=== PATIENT | female | born 2000 | race Caucasian/White ===

== ENCOUNTER 2022-11-06 19:13 | Emergency (ER) | payer OTHER ==
[~2022-11-06] VITALS: Ht 170.2 cm; Wt 63.1 kg
[2022-11-07] MEDS ORDERED: VENTAER INH (01:10)
[2022-11-07] MEDS ORDERED: BENZ200C70 PO (01:10)
[2022-11-07 01:18] VITALS: BP 114/63; TEMP 97.1; O2SAT 98
== END 2022-11-07 01:15 | disposition home or self-care (01) ==
LOC: M ED 19:13
DX: U07.1 COVID-19 (principal); Z79.52 Long term (current) use of systemic steroids; Z79.899 Other long term (current) drug therapy

== ENCOUNTER 2023-12-27 22:07 | Inpatient (IN) | payer OTHER ==
[~2023-12-27] VITALS: Ht 170.2 cm; Wt 61.4 kg
[~2023-12-27 22:07] MED LIST: BENZ200C70 PO; VENTAER INH
[2023-12-27 22:43] LABS: HEMATOCRIT 37.7 % (36.0-47.0); HEMOGLOBIN 12.7 g/dl (12.0-15.5); MEAN CORPUSCULAR HGB CONC 33.7 g/dl (32.0-36.5); MEAN CORPUSCULAR VOLUME 88.9 fl (80.0-96.0); PLATELET COUNT, AUTOMATED 270 10^3/uL (150-450); RED BLOOD COUNT 4.24 10^6/uL (4.00-5.40); WHITE BLOOD COUNT 10.7 10^3/uL (4.0-10.0)
[2023-12-27 23:03] LABS: AMPHETAMINES LEVEL URINE NEGATIVE (NEGATIVE); BARBITURATES URINE NEGATIVE (NEGATIVE); BENZODIAZEPINES URINE NEGATIVE (NEGATIVE); CANNABINOIDS URINE NEGATIVE (NEGATIVE); METHADONE URINE NEGATIVE (NEGATIVE); OPIATES URINE NEGATIVE (NEGATIVE); PHENCYCLIDINE URINE NEGATIVE (NEGATIVE)
[2023-12-27 23:05] LABS: ETHYL ALCOHOL (ETHANOL) < 0.003 % (0.000-0.010)
[2023-12-27 23:07] LABS: ALBUMIN 3.7 G/DL (3.2-5.2); ALKALINE PHOSPHATASE 90 U/L (35-104); ALT/SGPT 10 U/L (7.0-40); AST/SGOT 9 U/L (<34); BILIRUBIN,DIRECT 0.1 MG/DL (<0.4); BILIRUBIN,TOTAL 0.3 MG/DL (0.3-1.2); BLOOD UREA NITROGEN 9 MG/DL (9-23); CALCIUM LEVEL 9.3 MG/DL (8.5-10.1); CARBON DIOXIDE LEVEL 30 MMOL/L (20-31); CHLORIDE LEVEL 108 MMOL/L (98-107); CREATININE FOR GFR 0.76 MG/DL (0.55-1.30); GLOMERULAR FILTRATION RATE > 60.0 (>60); GLUCOSE, FASTING 89 MG/DL (60-100); POTASSIUM SERUM 3.6 MMOL/L (3.5-5.1); SALICYLATE LEVEL < 3.0 MG/DL (<30); SODIUM LEVEL 142 MMOL/L (136-145); TOTAL PROTEIN 6.7 G/DL (5.7-8.2)
[2023-12-27 23:10] LABS: COCAINE METABOLITE URINE POSITIVE (NEGATIVE)
[2023-12-27 23:11] LABS: THYROID STIMULATING HORMONE 2.356 uIU/ML (0.55-4.78)
[2023-12-28 00:04] LABS: HCG, SERUM QUALITATIVE NEGATIVE (NEGATIVE)
[2023-12-28] MEDS: NICOTINE 21MG/24HR 1 EA TRANSDERMAL TD ONE (00:58)
[2023-12-28] MEDS ORDERED: HOME MED LIST COMPLETE! XX SCH (01:10)
[2023-12-28] MEDS ORDERED: ACETAMINOPHEN 325 MG TAB PO PRN (01:15)
[2023-12-28] MEDS ORDERED: IBUPROFEN 400MG TAB PO PRN (01:15)
[2023-12-28] MEDS ORDERED: MOM 30ML SUSPENSION UDC PO PRN (01:15)
[2023-12-28] MEDS ORDERED: MAALOX 30 ML SUSP *UDC PO PRN (01:15)
[2023-12-28 06:48] VITALS: BP 141/60; TEMP 97.9; O2SAT 98
[2023-12-28] MEDS ORDERED: LORazepam 2 MG TAB PO PRN (07:55)
[2023-12-28] MEDS: FOLIC ACID 1MG TAB PO SCH (09:14)
[2023-12-28] MEDS: THIAMINE 100 MG TAB PO SCH (09:14)
[2023-12-28] MEDS: MULTIVITAMINS/MINERALS THERAP 1 TAB PO SCH (09:14)
[2023-12-28] MEDS: SERTRALINE HCL 50 MG TAB PO SCH (10:15)
[2023-12-28] MEDS: NICOTINE 21MG/24HR 1 EA TRANSDERMAL TD SCH (13:37)
[2023-12-28 16:40] VITALS: BP 118/64; TEMP 99.2
[2023-12-28] MEDS: diphenhydrAMINE 25MG CAP PO PRN (20:17)
[2023-12-28] MEDS: traZODone 50 MG TAB PO PRN (20:17)
[2023-12-28 20:47] VITALS: BP 116/76
[2023-12-29 04:45] VITALS: BP 109/59
[2023-12-29 06:35] VITALS: BP 109/59; TEMP 97.6
[2023-12-29 10:34] VITALS: BP 118/62
[2023-12-29 14:34] VITALS: BP 121/57; TEMP 98.7; O2SAT 100
[2023-12-29 17:22] VITALS: BP 121/64
[2023-12-30 06:13] VITALS: BP 131/69; TEMP 98; O2SAT 99
[2023-12-30] MEDS ORDERED: SERT50TA29 PO (07:57)
[2023-12-30 09:30] VITALS: BP 131/69
[2023-12-30] MEDS ORDERED: SERT-141 PO (13:22)
[2023-12-31] MEDS ORDERED: SERT50TA29 PO (23:25)
[2023-12-31] MEDS ORDERED: HYDR50TA70 PO (23:25)
[2023-12-31] MEDS ORDERED: TRAZ-252 PO (23:25)
[2023-12-31] MEDS ORDERED: VITAMIN K PO (23:27)
[2023-12-31] MEDS ORDERED: VITAMIN B12 PO (23:35)
[2023-12-31] MEDS ORDERED: VITACAP31 PO (23:35)
[2023-12-31] MEDS ORDERED: PROBIOTIC PO (23:35)
[2023-12-31] MEDS ORDERED: ACTIVATED CHARCOAL PO (23:35)
[2023-12-31] MEDS ORDERED: ENZYMES PO (23:35)
[2023-12-31] MEDS ORDERED: [UNRECOGNIZED DRUG - CODE] PO (23:35)
[2023-12-31] MEDS ORDERED: [UNRECOGNIZED DRUG - OTHER] PO (23:37)
== END 2023-12-30 11:06 | disposition home or self-care (01) | DRG 881 ==
LOC: M ED 22:07 → M ED INP 12-28 01:13 → M PSY 12-28 03:12
PROVIDERS: ADMIT Psychiatry & Neurology Psychiatry; ATTEND Psychiatry & Neurology Psychiatry
DX: F32.A Depression, unspecified (principal); R45.851 Suicidal ideations; Z62.810 Personal history of physical and sexual abuse in childhood; Z91.51 Personal history of suicidal behavior; Z81.8 Family history of other mental and behavioral disorders; F17.200 Nicotine dependence, unspecified, uncomplicated; Z65.3 Problems related to other legal circumstances

== ENCOUNTER 2023-12-31 20:45 | Inpatient (IN) | payer OTHER ==
[~2023-12-31] VITALS: Ht 170.2 cm; Wt 60.8 kg
[~2023-12-31 20:45] MED LIST changes: +SERT-141 PO; +SERT50TA29 PO
[2023-12-31 21:25] LABS: HEMATOCRIT 37.4 % (36.0-47.0); HEMOGLOBIN 12.7 g/dl (12.0-15.5); MEAN CORPUSCULAR HEMOGLOBIN 30.2 pg (27.0-33.0); PLATELET COUNT, AUTOMATED 290 10^3/uL (150-450); WHITE BLOOD COUNT 12.1 10^3/uL (4.0-10.0)
[2023-12-31 21:50] LABS: ETHYL ALCOHOL (ETHANOL) 0.007 % (0.000-0.010)
[2023-12-31] MEDS ORDERED: MED REC IN PROGRESS XX SCH (21:50)
[2023-12-31 21:51] LABS: SALICYLATE LEVEL < 3.0 MG/DL (<30)
[2023-12-31 21:52] LABS: ALBUMIN 3.8 G/DL (3.2-5.2); ALKALINE PHOSPHATASE 84 U/L (35-104); ALT/SGPT 12 U/L (7.0-40); AST/SGOT < 8 U/L (<34); BILIRUBIN,DIRECT < 0.1 MG/DL (<0.4); BILIRUBIN,TOTAL 0.2 MG/DL (0.3-1.2); BLOOD UREA NITROGEN 10 MG/DL (9-23); CALCIUM LEVEL 9.2 MG/DL (8.5-10.1); CARBON DIOXIDE LEVEL 26 MMOL/L (20-31); CHLORIDE LEVEL 107 MMOL/L (98-107); CREATININE FOR GFR 0.71 MG/DL (0.55-1.30); GLOMERULAR FILTRATION RATE > 60.0 (>60); GLUCOSE, FASTING 86 MG/DL (60-100); POTASSIUM SERUM 3.6 MMOL/L (3.5-5.1); SODIUM LEVEL 139 MMOL/L (136-145); TOTAL PROTEIN 6.9 G/DL (5.7-8.2)
[2023-12-31 21:54] LABS: THYROID STIMULATING HORMONE 3.261 uIU/ML (0.55-4.78)
[2023-12-31 22:00] LABS: AMPHETAMINES LEVEL URINE NEGATIVE (NEGATIVE); BARBITURATES URINE NEGATIVE (NEGATIVE); BENZODIAZEPINES URINE NEGATIVE (NEGATIVE); COCAINE METABOLITE URINE NEGATIVE (NEGATIVE); METHADONE URINE NEGATIVE (NEGATIVE)
[2023-12-31 22:01] LABS: CANNABINOIDS URINE NEGATIVE (NEGATIVE); OPIATES URINE NEGATIVE (NEGATIVE); PHENCYCLIDINE URINE NEGATIVE (NEGATIVE)
[2023-12-31 22:16] LABS: HCG, SERUM QUALITATIVE NEGATIVE (NEGATIVE)
[2023-12-31] MEDS ORDERED: SERT50TA29 PO (23:25)
[2023-12-31] MEDS ORDERED: HYDR50TA70 PO (23:25)
[2023-12-31] MEDS ORDERED: TRAZ-252 PO (23:25)
[2023-12-31] MEDS ORDERED: VITAMIN K PO (23:27)
[2023-12-31] MEDS ORDERED: MOM 30ML SUSPENSION UDC PO PRN (23:30)
[2023-12-31] MEDS ORDERED: ACETAMINOPHEN 325 MG TAB PO PRN (23:30)
[2023-12-31] MEDS ORDERED: MAALOX 30 ML SUSP *UDC PO PRN (23:30)
[2023-12-31] MEDS ORDERED: [UNRECOGNIZED DRUG - CODE] PO (23:35)
[2023-12-31] MEDS ORDERED: ENZYMES PO (23:35)
[2023-12-31] MEDS ORDERED: ACTIVATED CHARCOAL PO (23:35)
[2023-12-31] MEDS ORDERED: VITACAP31 PO (23:35)
[2023-12-31] MEDS ORDERED: VITAMIN B12 PO (23:35)
[2023-12-31] MEDS ORDERED: PROBIOTIC PO (23:35)
[2023-12-31] MEDS ORDERED: [UNRECOGNIZED DRUG - OTHER] PO (23:37)
[2023-12-31] MEDS ORDERED: HOME MED LIST COMPLETE! XX SCH (23:40)
[2024-01-01 01:22] VITALS: BP 123/57; TEMP 97.7; O2SAT 97
[2024-01-01] MEDS: diphenhydrAMINE 25MG CAP PO PRN (08:56)
[2024-01-01] MEDS: SERTRALINE HCL 50 MG TAB PO SCH (13:46)
[2024-01-01] MEDS: hydrOXYzine 50 MG TAB PO PRN (13:47)
[2024-01-01 14:46] VITALS: BP 127/58; TEMP 97.9; O2SAT 100
[2024-01-01] MEDS: NICOTINE 21MG/24HR 1 EA TRANSDERMAL TD SCH (14:55)
[2024-01-01] MEDS: traZODone 50 MG TAB PO PRN (21:05)
[2024-01-02 06:16] VITALS: BP 128/72; TEMP 97.3; O2SAT 96
[2024-01-02 15:30] VITALS: BP 116/60; TEMP 98.9; O2SAT 99
[2024-01-03 06:22] VITALS: BP 106/55; TEMP 97.3; O2SAT 98
[2024-01-03 16:46] VITALS: BP 149/80; TEMP 98.3; O2SAT 100
[2024-01-03] MEDS: IBUPROFEN 400MG TAB PO PRN (17:06)
[2024-01-04 06:09] VITALS: BP 115/57; TEMP 97.9; O2SAT 100
[2024-01-04 15:52] VITALS: BP 122/64; TEMP 99; O2SAT 94
[2024-01-05 06:15] VITALS: BP 119/58; TEMP 97.6; O2SAT 98
[2024-01-05 15:08] VITALS: BP 110/79; TEMP 97.5; O2SAT 98
[2024-01-06 06:23] VITALS: BP 110/73; TEMP 97.9; O2SAT 97
[2024-01-06 15:32] VITALS: BP 124/64; TEMP 98.4; O2SAT 100
[2024-01-09 15:37] VITALS: BP 124/72; TEMP 98.7; O2SAT 98
[2024-01-10 15:24] VITALS: BP 113/66; TEMP 98.5; O2SAT 98
[2024-01-12] MEDS ORDERED: DIPH-429 PO (18:31)
== END 2024-01-11 12:08 | disposition home or self-care (01) | DRG 881 ==
LOC: M ED 20:45 → M ED INP 23:30 → M PSY 01-01 00:28
PROVIDERS: ADMIT Psychiatry & Neurology Psychiatry; ATTEND Psychiatry & Neurology Psychiatry
DX: F32.A Depression, unspecified (principal); R45.851 Suicidal ideations; F43.20 Adjustment disorder, unspecified; F60.89 Other specific personality disorders; Z81.8 Family history of other mental and behavioral disorders; F19.90 Other psychoactive substance use, unspecified, uncomplicated

== ENCOUNTER 2024-01-12 17:31 | Emergency (ER) | payer OTHER ==
[~2024-01-12] VITALS: Ht 170.2 cm; Wt 61.4 kg
[~2024-01-12 17:31] MED LIST changes: +ACTIVATED CHARCOAL PO; +ENZYMES PO; +HYDR50TA70 PO; +PROBIOTIC PO; +TRAZ-252 PO; +VITACAP31 PO; +VITAMIN B12 PO; +VITAMIN K PO; +[UNRECOGNIZED DRUG - CODE] PO; +[UNRECOGNIZED DRUG - OTHER] PO
[2024-01-12 18:30] LABS: HEMATOCRIT 41.2 % (36.0-47.0); HEMOGLOBIN 13.9 g/dl (12.0-15.5); MEAN CORPUSCULAR HEMOGLOBIN 29.4 pg (27.0-33.0); MEAN CORPUSCULAR HGB CONC 33.7 g/dl (32.0-36.5); MEAN CORPUSCULAR VOLUME 87.3 fl (80.0-96.0); PLATELET COUNT, AUTOMATED 281 10^3/uL (150-450); RED BLOOD COUNT 4.72 10^6/uL (4.00-5.40); WHITE BLOOD COUNT 11.4 10^3/uL (4.0-10.0)
[2024-01-12] MEDS ORDERED: DIPH-429 PO (18:31)
[2024-01-12] MEDS ORDERED: HOME MED LIST COMPLETE! XX SCH (18:40)
[2024-01-12 18:52] LABS: AMPHETAMINES LEVEL URINE NEGATIVE (NEGATIVE); BARBITURATES URINE NEGATIVE (NEGATIVE); BENZODIAZEPINES URINE NEGATIVE (NEGATIVE); CANNABINOIDS URINE NEGATIVE (NEGATIVE); COCAINE METABOLITE URINE NEGATIVE (NEGATIVE); ETHYL ALCOHOL (ETHANOL) 0.005 % (0.000-0.010); METHADONE URINE NEGATIVE (NEGATIVE); OPIATES URINE NEGATIVE (NEGATIVE); PHENCYCLIDINE URINE NEGATIVE (NEGATIVE)
[2024-01-12 18:53] LABS: SALICYLATE LEVEL < 3.0 MG/DL (<30)
[2024-01-12 18:54] LABS: ALBUMIN 4.4 G/DL (3.2-5.2); ALKALINE PHOSPHATASE 80 U/L (35-104); ALT/SGPT 20 U/L (7.0-40); AST/SGOT 16 U/L (<34); BILIRUBIN,DIRECT 0.2 MG/DL (<0.4); BILIRUBIN,TOTAL 0.5 MG/DL (0.3-1.2); BLOOD UREA NITROGEN 12 MG/DL (9-23); CALCIUM LEVEL 9.8 MG/DL (8.5-10.1); CARBON DIOXIDE LEVEL 26 MMOL/L (20-31); CHLORIDE LEVEL 107 MMOL/L (98-107); CREATININE FOR GFR 0.65 MG/DL (0.55-1.30); GLOMERULAR FILTRATION RATE > 60.0 (>60); GLUCOSE, FASTING 93 MG/DL (60-100); POTASSIUM SERUM 3.6 MMOL/L (3.5-5.1); SODIUM LEVEL 142 MMOL/L (136-145); TOTAL PROTEIN 7.8 G/DL (5.7-8.2)
[2024-01-12 18:56] LABS: THYROID STIMULATING HORMONE 2.722 uIU/ML (0.55-4.78)
[2024-01-12 19:00] LABS: HCG, SERUM QUALITATIVE NEGATIVE (NEGATIVE)
[2024-01-12 20:22] VITALS: BP 117/68; TEMP 98; O2SAT 99
== END 2024-01-12 22:45 | disposition home or self-care (01) ==
LOC: M ED 17:31
DX: Z04.6 Encounter for general psychiatric examination, requested by authority (principal); F32.A Depression, unspecified; F19.10 Other psychoactive substance abuse, uncomplicated; Z79.899 Other long term (current) drug therapy

== ENCOUNTER 2024-01-19 04:18 | Inpatient (IN) | payer OTHER ==
[~2024-01-19] VITALS: Ht 165.1 cm; Wt 63.2 kg
[~2024-01-19 04:18] MED LIST changes: +DIPH-429 PO
[2024-01-19 04:56] LABS: HEMATOCRIT 37.8 % (36.0-47.0); HEMOGLOBIN 12.8 g/dl (12.0-15.5); MEAN CORPUSCULAR HEMOGLOBIN 29.6 pg (27.0-33.0); MEAN CORPUSCULAR HGB CONC 33.9 g/dl (32.0-36.5); MEAN CORPUSCULAR VOLUME 87.5 fl (80.0-96.0); PLATELET COUNT, AUTOMATED 266 10^3/uL (150-450); RED BLOOD COUNT 4.32 10^6/uL (4.00-5.40); WHITE BLOOD COUNT 7.8 10^3/uL (4.0-10.0)
[2024-01-19 05:26] LABS: AMPHETAMINES LEVEL URINE NEGATIVE (NEGATIVE); BARBITURATES URINE NEGATIVE (NEGATIVE); BENZODIAZEPINES URINE NEGATIVE (NEGATIVE); CANNABINOIDS URINE NEGATIVE (NEGATIVE); COCAINE METABOLITE URINE NEGATIVE (NEGATIVE); METHADONE URINE NEGATIVE (NEGATIVE); OPIATES URINE NEGATIVE (NEGATIVE); PHENCYCLIDINE URINE NEGATIVE (NEGATIVE)
[2024-01-19 05:29] LABS: ALBUMIN 3.9 G/DL (3.2-5.2); ALKALINE PHOSPHATASE 80 U/L (35-104); ALT/SGPT 26 U/L (7.0-40); AST/SGOT 20 U/L (<34); BILIRUBIN,DIRECT < 0.1 MG/DL (<0.4); BILIRUBIN,TOTAL 0.2 MG/DL (0.3-1.2); BLOOD UREA NITROGEN 15 MG/DL (9-23); CALCIUM LEVEL 9.2 MG/DL (8.5-10.1); CARBON DIOXIDE LEVEL 24 MMOL/L (20-31); CHLORIDE LEVEL 110 MMOL/L (98-107); CREATININE FOR GFR 0.77 MG/DL (0.55-1.30); GLOMERULAR FILTRATION RATE > 60.0 (>60); GLUCOSE, FASTING 81 MG/DL (60-100); POTASSIUM SERUM 3.8 MMOL/L (3.5-5.1); SALICYLATE LEVEL < 3.0 MG/DL (<30); SODIUM LEVEL 143 MMOL/L (136-145); TOTAL PROTEIN 6.8 G/DL (5.7-8.2)
[2024-01-19 05:33] LABS: THYROID STIMULATING HORMONE 4.466 uIU/ML (0.55-4.78)
[2024-01-19 05:38] LABS: HCG, SERUM QUALITATIVE NEGATIVE (NEGATIVE)
[2024-01-19] MEDS ORDERED: ISOVUE-370 76% 100ML VIAL As Ordered ONE (05:48)
[2024-01-19] MEDS: NS 1,000 ML IV ONE (05:55)
[2024-01-19] MEDS ORDERED: HYDR50TAB PO (07:15)
[2024-01-19] MEDS ORDERED: LOSA100T46 PO (07:16)
[2024-01-19] MEDS ORDERED: SIMV40TA20 PO (07:17)
[2024-01-19] MEDS ORDERED: METF-839 PO (07:18)
[2024-01-19] MEDS ORDERED: ROPI2TAB24 PO (07:19)
[2024-01-19] MEDS ORDERED: ROPI0.5T33 PO (07:19)
[2024-01-19] MEDS ORDERED: METO1TAB7 PO (07:20)
[2024-01-19] MEDS ORDERED: IRON65TA2 PO (07:21)
[2024-01-19] MEDS ORDERED: MAGN400C PO (07:22)
[2024-01-19] MEDS ORDERED: VITA200012 PO (07:23)
[2024-01-19] MEDS ORDERED: HOME MED LIST COMPLETE! XX SCH (10:30)
[2024-01-19] MEDS ORDERED: MAALOX 30 ML SUSP *UDC PO PRN (13:45)
[2024-01-19] MEDS ORDERED: MOM 30ML SUSPENSION UDC PO PRN (13:45)
[2024-01-19] MEDS ORDERED: ACETAMINOPHEN 325 MG TAB PO PRN (13:45)
[2024-01-19 15:01] VITALS: BP 122/58; TEMP 98.1
[2024-01-19] MEDS: SERTRALINE HCL 50 MG TAB PO SCH (18:06)
[2024-01-19] MEDS: NICOTINE 14 MG/24 HR TRANSDERMAL TD SCH (18:11)
[2024-01-19] MEDS: diphenhydrAMINE 25MG CAP PO PRN (18:42)
[2024-01-20] MEDS: traZODone 50 MG TAB PO PRN (00:48)
[2024-01-20 06:33] VITALS: BP 120/58; O2SAT 100
[2024-01-20] MEDS: IBUPROFEN 400MG TAB PO PRN (11:53)
[2024-01-20] MEDS: OLANZapine ORAL DISINTEGRATING TAB 5MG PO PRN (12:27)
[2024-01-20 14:56] VITALS: BP 119/56; TEMP 97.7; O2SAT 98
[2024-01-20 22:08] VITALS: BP 119/56; TEMP 97.7; O2SAT 98
[2024-01-21] MEDS: SERTRALINE HCL 25 MG TABLET PO SCH (08:44)
[2024-01-21 16:31] VITALS: BP 118/66; TEMP 98.7; O2SAT 100
[2024-01-22 15:16] VITALS: BP 117/63; TEMP 98.6; O2SAT 100
[2024-01-23 16:07] VITALS: BP 116/56; TEMP 98.7; O2SAT 100
[2024-01-24] MEDS ORDERED: SERT25TA21 PO (09:26)
[2024-01-24] MEDS ORDERED: OLAN5ZYD PO (09:26)
== END 2024-01-24 10:48 | disposition home or self-care (01) | DRG 881 ==
LOC: EDBD 04:18 → M ED 04:18 → M ED INP 13:44 → M PSY 14:41
PROVIDERS: ADMIT Psychiatry & Neurology Psychiatry; ATTEND Psychiatry & Neurology Psychiatry
DX: F32.A Depression, unspecified (principal); R45.851 Suicidal ideations; F43.25 Adjustment disorder with mixed disturbance of emotions and conduct; F32.9 Major depressive disorder, single episode, unspecified; F60.89 Other specific personality disorders; Z79.899 Other long term (current) drug therapy; F10.10 Alcohol abuse, uncomplicated; F16.90 Hallucinogen use, unspecified, uncomplicated